=== PATIENT | male | born 1950 | race Caucasian/White ===

== ENCOUNTER 2016-10-31 21:25 | Emergency (ER) | payer BC, OTHER ==
[2016-10-31 21:32] VITALS: BP 133/81
[2016-10-31] MEDS ORDERED: ZIPRASIDONE 20 MG INJ IM ONE ×2 (22:13→22:30)
== END 2016-10-31 23:14 | disposition home or self-care (01) ==
LOC: ED 22:45
DX: F15.129 Other stimulant abuse with intoxication, unspecified (principal); I10 Essential (primary) hypertension
CPT/HCPCS: 96372; 99283; J3486

== ENCOUNTER → 2017-11-08 | Outpatient (CLI) | payer MEDICARE ==
[~2017-11-08] MED LIST: ASPI-515 PO/NG; ATEN-104 PO; ATOR40TA78 PO; BACL20TA PO; CLON0.1T PO; DOXY20TA5 PO; ENAL20TA PO; ESZO3TAB28 PO; HYDR-3240 PO
== END | disposition home or self-care (01) ==
LOC: RAD 15:25
PROVIDERS: ATTEND Nurse Practitioner Family
DX: I82.401 Acute embolism and thrombosis of unspecified deep veins of right lower extremity (principal)

== ENCOUNTER 2018-09-28 20:41 | Inpatient (IN) | payer MEDICARE ==
[~2018-09-28] VITALS: Ht 182.9 cm; Wt 83.3 kg
[~2018-09-28 20:41] MED LIST changes: -CLON0.1T PO; +CLON0.1T22 PO
[2018-09-28] MEDS ORDERED: SODIUM CHLORIDE 0.9% 1,000ML IVBOLUS ONE ×2 (21:00→22:00)
--- NOTE | 2018-09-28 21:11 | NUR ---
PT RETURNED FROM CT. REPORT FROM KIM OLIVA. PT AWAKE, INCOMPREHENSIBLE SPEECH. PT NOT FOLLOWING COMMANDS, BUT TURNS HEAD TOWARD RN. LAB IN TO DRAW. AIRWAY PATENT. SPO2 ON 3L BY NC. NO BASELINE O2 NEEDS.
[2018-09-28] MEDS ORDERED: CLOP75TA52 PO (21:17)
[2018-09-28 21:31] LABS: BASOPHILS # (AUTO) 0.02 x10^3/uL (0-0.1); BASOPHILS % (AUTO) 0 % (0-1); EOSINOPHILS # (AUTO) 0.19 x10^3/uL (0-0.4); EOSINOPHILS % (AUTO) 1 % (1-7); LYMPHOCYTES # (AUTO) 1.94 x10^3/uL (1-3.4); LYMPHOCYTES % (AUTO) 11 % (22-44); MD NO; MEAN CORPUSCULAR HEMOGLOBIN 20.5 pg (27.5-34.5); MEAN CORPUSCULAR HGB CONC 31.4 g/dL (33.2-36.2); MEAN CORPUSCULAR VOLUME 65.2 fL (81-97); MEAN PLATELET VOLUME 8.7 fL (7.4-10.4); MONOCYTES % (AUTO) 7 % (2-9); NEUTROPHILS # (AUTO) 14.31 x10^3/uL (1.8-6.8); NEUTROPHILS % (AUTO) 81 % (42-75); PLATELET COUNT 357 x10^3/uL (130-400); RED BLOOD COUNT 3.99 x10^6/uL (4.38-5.82); RED CELL DISTRIBUTION WIDTH 18.4 % (9.4-14.8)
[2018-09-28] MEDS ORDERED: FLUO20CA8 PO (21:36)
[2018-09-28] MEDS ORDERED: CHOL100011 PO (21:36)
[2018-09-28] MEDS ORDERED: PANT40TA5 PO (21:36)
[2018-09-28] MEDS ORDERED: PROM25SU34 RC (21:36)
[2018-09-28] MEDS ORDERED: DOXY20TA5 PO (21:36)
--- NOTE | 2018-09-28 21:36 | NUR ---
STRAIGHT CATH COMPLETED. UA COLLECTED AND WALKED TO LAB
[2018-09-28 21:43] LABS: ALANINE AMINOTRANSFERASE 263 U/L (12-78); ALBUMIN 3.3 g/dL (3.4-5.0); ANION GAP 11 mmol/L (5-15); CALCIUM 8.9 mg/dL (8.5-10.1); CHLORIDE 107 mmol/L (98-107); CREATININE 3.41 mg/dL (0.7-1.3)
[2018-09-28 21:52] LABS: MICROSCOPIC NOT IND
[2018-09-28 21:55] LABS: CULTURE INDICATED? NO
--- NOTE | 2018-09-28 21:55 | NUR ---
Set up for central lineplacement to room and nurse talking with family regarding need for placement as pt remains hypotensive. Dr Lynn is aware.
--- NOTE | 2018-09-28 21:56 | NUR ---
ERP AWARE OF BP. SECOND LITER ORDERED. IVF HUNG. ABX INITIATED. BC X2 DRAWN PRIOR TO ADMIN
[2018-09-28] MEDS ORDERED: VANCOMYCIN PER PHARMACY IV ONE (22:00)
[2018-09-28] MEDS ORDERED: VANCOMYCIN 1,600 MG in SODIUM CHLORIDE 0.9% 250 ML IV ONE (22:00)
[2018-09-28] MEDS ORDERED: PIPERACILLIN/TAZO/PMX 3.375GM 50 ML IVPB ONE (22:00)
--- NOTE | 2018-09-28 22:00 | NUR ---
CONSENT FOR CENTRAL LINE SIGNED BY AT BEDSIDE. PER ERP, START LEVOPHED THROUGH PIV. MEDICATION REQUESTED FROM PHARMACY
[2018-09-28 22:02] LABS: ALKALINE PHOSPHATASE 54 U/L (45-117); BILIRUBIN,TOTAL 0.6 mg/dL (0.2-1.0); TOTAL PROTEIN 7.5 g/dL (6.4-8.2)
--- NOTE | 2018-09-28 22:08 | NUR ---
THROUGHPUT RN: Called [facility] for admission, per Chema they are full and unable to accept patient.
--- NOTE | 2018-09-28 22:08 | NUR ---
Corina zamorano in ED - 09/28/18 at 2209 by AL THROUGHPUT RN: Called [facility] for admission, per Chema they are full and unable to accept patient.
--- NOTE | 2018-09-28 22:09 | NUR ---
ERP AWARE OF TROP. NO NEW ORDERS RECEIVED.
--- NOTE | 2018-09-28 22:12 | NUR ---
REQUEST FOR SUP ASA SENT TO PHARMACY
[2018-09-28] MEDS ORDERED: NOREPINEPHRINE 4 MG in SODIUM CHLORIDE 0.9% 246 ML IV PRN ×2 (22:30→23:30)
[2018-09-28] MEDS ORDERED: ASPIRIN 300 MG SUPP PR ONE (22:30)
--- NOTE | 2018-09-28 22:31 | NUR ---
LEVOPHED INITIATED THROUGH PIV PER ERP ORDER. ASA ADMIN PER ORDER.
[2018-09-28] MEDS ORDERED: LIDOCAINE-MPF 1%, 5ML ONE (22:40)
--- NOTE | 2018-09-28 23:15 | NUR ---
CENTRAL PLACED TO R IJ BY ERP WO DIFFICULTY. PT DESAT TO 70'S ON 4L BY NC WHEN IN SUPINE POSITION. PLACED ON 6L BY OXY MASK FOR PROCEDURE. SPO2 TO 90'S WHEN IN SEATED POSITION. PT DIAPHORETIC. IVF CONTINUES TO INFUSE. NSR W/ ST DEPRESSION ON MONITOR.
--- NOTE | 2018-09-28 23:32 | NUR ---
REPEAT EKG COMPLETED.
--- NOTE | 2018-09-28 23:43 | NUR ---
HOSPITALIST AT BEDSIDE.
--- NOTE | 2018-09-28 23:43 | NUR ---
XRAY CONFIRMATION OF CENTRAL LINE PLACEMENT RECEIVED. LEVO MOVED TO CENTRAL LINE.
--- NOTE | 2018-09-29 00:04 | NUR ---
PT BECOMING MORE TALKATIVE, THOUGH SPEECH IS DIFFICULT TO UNDERSTAND. IMPROVEMENT IN DIAPHORESIS NOTED.
--- NOTE | 2018-09-29 00:26 | NUR ---
REPORT TO KIM CORONADO IN CCU
[2018-09-29] MEDS ORDERED: HEPARIN 5,000 UNITS/ML, 1ML IV ONE (00:30)
[2018-09-29] MEDS ORDERED: ONDANSETRON 2MG/ML, 2ML IVPush PRN (00:30)
[2018-09-29] MEDS ORDERED: ZOSYN PER PHARMACY MC PRN (01:30)
[2018-09-29] MEDS ORDERED: VANCOMYCIN PER PHARMACY MC PRN (01:30)
[2018-09-29] MEDS: HEPARIN 25,000 UNITS/500ML PMX 500 ML IV PRN (01:54)
[2018-09-29] MEDS ORDERED: PHARMACOKINETIC MONITORING MC PRN (02:00)
[2018-09-29] MEDS ORDERED: PIPERACILLIN/TAZO/PMX 2.25GM 50 ML IVPB SCH (04:00)
[2018-09-29 04:22] VITALS: BP 89/42
[2018-09-29] MEDS: NOREPINEPHRINE 8 MG in SODIUM CHLORIDE 0.9% 242 ML IV PRN ×2 (04:58→14:01)
[2018-09-29] MEDS: CEFTRIAXONE PMX 1GM/50ML 50 ML IV SCH ×2 (09:36→10:49)
[2018-09-29] MEDS: HEPARIN 5,000 UNITS/ML, 1ML IV PRN ×2 (10:42→22:30)
[2018-09-29] MEDS: DOXYCYCLINE 100 MG in DEXTROSE 5% 250 ML IV SCH ×2 (10:51→22:29)
[2018-09-30] MEDS: HEPARIN 25,000 UNITS/500ML PMX 500 ML IV PRN ×2 (03:24→23:23)
[2018-09-30 04:00] VITALS: BP 107/59
[2018-09-30 04:47] LABS: BASOPHILS # (AUTO) 0.16 x10^3/uL (0-0.1); BASOPHILS % (AUTO) 1 % (0-1); EOSINOPHILS % (AUTO) 0 % (1-7); LYMPHOCYTES # (AUTO) 1.42 x10^3/uL (1-3.4); LYMPHOCYTES % (AUTO) 12 % (22-44); MD NO; MEAN CORPUSCULAR HEMOGLOBIN 20.4 pg (27.5-34.5); MEAN CORPUSCULAR HGB CONC 30.8 g/dL (33.2-36.2); MEAN CORPUSCULAR VOLUME 66.1 fL (81-97); MONOCYTES % (AUTO) 10 % (2-9); NEUTROPHILS # (AUTO) 9.12 x10^3/uL (1.8-6.8); NEUTROPHILS % (AUTO) 77 % (42-75); PLATELET COUNT 295 x10^3/uL (130-400); RED BLOOD COUNT 3.49 x10^6/uL (4.38-5.82); RED CELL DISTRIBUTION WIDTH 18.5 % (9.4-14.8)
[2018-09-30 04:58] LABS: ALBUMIN 2.5 g/dL (3.4-5.0); ANION GAP 6 mmol/L (5-15); CALCIUM 8.3 mg/dL (8.5-10.1); CHLORIDE 118 mmol/L (98-107)
[2018-09-30 05:02] LABS: ALANINE AMINOTRANSFERASE 327 U/L (12-78); ALKALINE PHOSPHATASE 57 U/L (45-117); BILIRUBIN,TOTAL 0.5 mg/dL (0.2-1.0); CREATININE 1.33 mg/dL (0.7-1.3); TOTAL PROTEIN 6.7 g/dL (6.4-8.2)
[2018-09-30 08:00] VITALS: BP 106/62
[2018-09-30] MEDS: FERROUS SULFATE 325 MG TABLET PO SCH ×2 (09:00→16:56)
[2018-09-30 09:02] VITALS: BP 105/58
[2018-09-30 09:58] VITALS: BP 107/73
[2018-09-30] MEDS: ARTIFICIAL TEARS 15 DROP/ML BOTTLE EACHEYE PRN ×3 (11:25→22:02)
[2018-09-30] MEDS ORDERED: GADOBUTROL 7.5 MMOL/7.5 ML PFS ONE (13:24)
[2018-09-30] MEDS: CEFTRIAXONE PMX 1GM/50ML 50 ML IV SCH (13:36)
[2018-09-30] MEDS: DOXYCYCLINE 100 MG in DEXTROSE 5% 250 ML IV SCH ×2 (13:36→23:44)
[2018-09-30 13:58] VITALS: BP 114/74
[2018-09-30 19:27] VITALS: BP 110/71
[2018-10-01] MEDS ORDERED: ETOMIDATE 40 MG/20 ML ONE
[2018-10-01] MEDS ORDERED: ROCURONIUM 10 MG/ML,10ML ONE
[2018-10-01] MEDS ORDERED: VASOPRESSIN 20 UNIT/ML, 1ML ONE
[2018-10-01] MEDS ORDERED: PROPOFOL 10 MG/ML, 100ML IV ONE
[2018-10-01 00:32] VITALS: BP 110/76
[2018-10-01 05:33] LABS: MEAN CORPUSCULAR HEMOGLOBIN 20.5 pg (27.5-34.5); MEAN CORPUSCULAR HGB CONC 30.9 g/dL (33.2-36.2); MEAN CORPUSCULAR VOLUME 66.5 fL (81-97); MEAN PLATELET VOLUME 8.5 fL (7.4-10.4); PLATELET COUNT 336 x10^3/uL (130-400); RED BLOOD COUNT 3.97 x10^6/uL (4.38-5.82); RED CELL DISTRIBUTION WIDTH 18.4 % (9.4-14.8)
[2018-10-01 05:38] LABS: ANION GAP 9 mmol/L (5-15); CALCIUM 8.6 mg/dL (8.5-10.1); CHLORIDE 118 mmol/L (98-107); CREATININE 1.37 mg/dL (0.7-1.3)
[2018-10-01 05:55] LABS: BASOPHILS # (AUTO) 0.35 x10^3/uL (0-0.1); BASOPHILS % (AUTO) 3 % (0-1); EOSINOPHILS % (AUTO) 0 % (1-7); LYMPHOCYTES # (AUTO) 1.39 x10^3/uL (1-3.4); LYMPHOCYTES % (AUTO) 10 % (22-44); MD SCAN; MONOCYTES # (AUTO) 1.35 x10^3/uL (0.2-0.8); MONOCYTES % (AUTO) 10 % (2-9); NEUTROPHILS # (AUTO) 10.56 x10^3/uL (1.8-6.8); NEUTROPHILS % (AUTO) 77 % (42-75)
[2018-10-01 07:03] VITALS: BP 132/85
[2018-10-01] MEDS: FERROUS SULFATE 325 MG TABLET PO SCH ×2 (07:26→17:00)
[2018-10-01] MEDS ORDERED: FUROSEMIDE 40 MG/4 ML ONE (08:24)
[2018-10-01] MEDS: ASPIRIN 81 MG TABLET EC PO SCH (08:30)
[2018-10-01] MEDS ORDERED: FUROSEMIDE 40 MG/4 ML IV ONE ×2 (08:30→15:00)
[2018-10-01] MEDS ORDERED: POTASSIUM CHLORIDE 20 MEQ TAB.ER.PRT PO SCH (08:30)
[2018-10-01] MEDS: ARTIFICIAL TEARS 15 DROP/ML BOTTLE EACHEYE PRN (08:44)
[2018-10-01] MEDS ORDERED: POTASSIUM CHLORIDE 20 MEQ in SODIUM CHLORIDE 0.9% 250 ML IV ONE (09:30)
[2018-10-01] MEDS ORDERED: SODIUM CHLORIDE 0.9% 1,000 ML IV SCH ×2 (11:00→12:30)
[2018-10-01 11:27] VITALS: BP 111/65
[2018-10-01] MEDS ORDERED: NOREPINEPHRINE 1 MG/ML, 4ML ONE (11:49)
[2018-10-01] MEDS ORDERED: SODIUM CHLORIDE 0.9% 1,000ML IVBOLUS ONE (12:30)
[2018-10-01] MEDS ORDERED: SENNA 176 MG/5 ML ORAL SOL NG PRN (12:30)
[2018-10-01] MEDS ORDERED: GLUCAGON 1 MG IM PRN (12:30)
[2018-10-01] MEDS ORDERED: VANCOMYCIN PER PHARMACY MC PRN (12:30)
[2018-10-01] MEDS ORDERED: SENNA/DOCUSATE TABLET NG PRN (12:30)
[2018-10-01] MEDS ORDERED: LACTULOSE 20 GM/30 ML UDC NG PRN (12:30)
[2018-10-01] MEDS: ALBUTEROL/IPRATROPIUM 2.5MG/0.5MG, 3 ML INLINE SCH ×4 (12:30→22:27)
[2018-10-01] MEDS ORDERED: DEXTROSE 50%, 50ML SYRINGE IVPush PRN (12:30)
[2018-10-01] MEDS ORDERED: LIDOCAINE-MPF 1%, 2ML ENDO PRN (12:30)
[2018-10-01] MEDS ORDERED: BISACODYL 10 MG SUPP PR PRN (12:30)
[2018-10-01] MEDS ORDERED: PHARMACY MAY ADJ FOR RENAL FX MC SCH (12:30)
[2018-10-01] MEDS ORDERED: DEXTROSE 4 GM TAB.CHEW PO PRN (12:30)
[2018-10-01] MEDS ORDERED: PHARMACOKINETIC MONITORING MC PRN (13:00)
[2018-10-01] MEDS: NOREPINEPHRINE 4 MG in SODIUM CHLORIDE 0.9% 246 ML IV PRN ×3 (13:17→22:32)
[2018-10-01 13:28] LABS: INTERNATIONAL NORMALIZED RATIO 1.22 (0.93-1.1); PROTHROMBIN TIME 12.7 Seconds (9.6-11.5)
[2018-10-01 14:15] LABS: MEAN CORPUSCULAR HEMOGLOBIN 20.1 pg (27.5-34.5); MEAN CORPUSCULAR HGB CONC 30.4 g/dL (33.2-36.2); MEAN CORPUSCULAR VOLUME 66.1 fL (81-97); MEAN PLATELET VOLUME 9.4 fL (7.4-10.4); PLATELET COUNT 390 x10^3/uL (130-400); RED BLOOD COUNT 3.62 x10^6/uL (4.38-5.82); RED CELL DISTRIBUTION WIDTH 18.3 % (9.4-14.8)
[2018-10-01 14:17] LABS: MD YES
[2018-10-01 14:24] LABS: BAND#(MANUAL) 0.13 x10^3/uL; BANDS%(MANUAL) 1 % (0-7); LYMPH#(MANUAL) 1.89 x10^3/uL (1-3.4); LYMPHS% (MANUAL) 15 % (22-44); MONOS#(MANUAL) 0.76 x10^3/uL (0.3-2.7); MONOS% (MANUAL) 6 % (2-9); NRBC % (MANUAL) 2 % (0-1); SEG#(MANUAL) 9.83 x10^3/uL (1.8-6.8); SEGS% (MANUAL) 78 % (42-75)
[2018-10-01 14:26] LABS: <PLATELET ESTIMATE> ADEQUATE; <PLT MORPHOLOGY> NORMAL PLT MORPH; ANISOCYTOSIS 1+; HYPOCHROMIA 1+; POLYCHROMASIA 1+
[2018-10-01] MEDS ORDERED: VASOPRESSIN 100 UNIT in SODIUM CHLORIDE 0.9% 495 ML IV PRN (14:30)
[2018-10-01 15:15] LABS: CALCIUM 8.1 mg/dL (8.5-10.1); CHLORIDE 121 mmol/L (98-107)
[2018-10-01 15:21] LABS: ALANINE AMINOTRANSFERASE 239 U/L (12-78); ALBUMIN 2.3 g/dL (3.4-5.0); ALKALINE PHOSPHATASE 65 U/L (45-117); ANION GAP 10 mmol/L (5-15); BILIRUBIN,TOTAL 0.6 mg/dL (0.2-1.0); CREATININE 1.76 mg/dL (0.7-1.3); TOTAL PROTEIN 6.4 g/dL (6.4-8.2)
[2018-10-01] MEDS: PIPERACILLIN/TAZO/PMX 3.375GM 50 ML IV SCH ×2 (15:25→19:54)
[2018-10-01] MEDS: VANCOMYCIN 1,600 MG in SODIUM CHLORIDE 0.9% 250 ML IV SCH (15:25)
[2018-10-01] MEDS: INSULIN LISPRO 100 UNITS/ML, PEN SQ-INSULIN SCH ×2 (16:00→21:37)
[2018-10-01] MEDS ORDERED: FUROSEMIDE 40 MG TABLET PO SCH (17:00)
[2018-10-01] MEDS: PROPOFOL 100 ML IV PRN (19:28)
[2018-10-01] MEDS: SODIUM CHLORIDE FLUSH 10ML SYR IVF SCH (21:36)
[2018-10-01] MEDS: HEPARIN 25,000 UNITS/500ML PMX 500 ML IV PRN (23:54)
[2018-10-02] MEDS: PIPERACILLIN/TAZO/PMX 3.375GM 50 ML IV SCH ×4 (02:02→19:58)
[2018-10-02] MEDS: NOREPINEPHRINE 4 MG in SODIUM CHLORIDE 0.9% 246 ML IV PRN ×4 (02:14→20:54)
[2018-10-02] MEDS: ALBUTEROL/IPRATROPIUM 2.5MG/0.5MG, 3 ML INLINE SCH ×6 (02:53→22:43)
[2018-10-02] MEDS: PROPOFOL 100 ML IV PRN ×2 (03:45→13:20)
[2018-10-02 03:48] LABS: MEAN CORPUSCULAR HEMOGLOBIN 20.1 pg (27.5-34.5); MEAN CORPUSCULAR HGB CONC 30.5 g/dL (33.2-36.2); MEAN CORPUSCULAR VOLUME 66.1 fL (81-97); MEAN PLATELET VOLUME 8.6 fL (7.4-10.4); PLATELET COUNT 300 x10^3/uL (130-400); RED BLOOD COUNT 3.34 x10^6/uL (4.38-5.82); RED CELL DISTRIBUTION WIDTH 18.3 % (9.4-14.8)
[2018-10-02 03:59] LABS: ALANINE AMINOTRANSFERASE 211 U/L (12-78); ALBUMIN 2.2 g/dL (3.4-5.0); ANION GAP 7 mmol/L (5-15); CALCIUM 8.1 mg/dL (8.5-10.1); CHLORIDE 121 mmol/L (98-107); CREATININE 1.69 mg/dL (0.7-1.3)
[2018-10-02 04:00] LABS: ANISOCYTOSIS 1+; BASOPHILS # (AUTO) 0.12 x10^3/uL (0-0.1); BASOPHILS % (AUTO) 1 % (0-1); EOSINOPHILS # (AUTO) 0.12 x10^3/uL (0-0.4); EOSINOPHILS % (AUTO) 1 % (1-7); LYMPHOCYTES # (AUTO) 1.94 x10^3/uL (1-3.4); LYMPHOCYTES % (AUTO) 15 % (22-44); MD MORPH REVIEW ONLY; MONOCYTES # (AUTO) 1.36 x10^3/uL (0.2-0.8); MONOCYTES % (AUTO) 11 % (2-9); NEUTROPHILS # (AUTO) 9.13 x10^3/uL (1.8-6.8); NEUTROPHILS % (AUTO) 72 % (42-75)
[2018-10-02 04:01] LABS: ALKALINE PHOSPHATASE 57 U/L (45-117); BILIRUBIN,TOTAL 0.6 mg/dL (0.2-1.0); ECHINOCYTES 1+; POLYCHROMASIA 1+; TOTAL PROTEIN 6.1 g/dL (6.4-8.2)
[2018-10-02 04:02] LABS: <PLATELET ESTIMATE> ADEQUATE; LARGE PLATELETS 1+; OVALOCYTES 1+
[2018-10-02 05:00] VITALS: BP 96/55
[2018-10-02 05:30] VITALS: BP 95/60
[2018-10-02 05:45] VITALS: BP 96/54
[2018-10-02] MEDS: ASPIRIN 81 MG TABLET EC PO SCH (05:48)
[2018-10-02 06:00] VITALS: BP 102/52
[2018-10-02 07:00] VITALS: BP 104/62
[2018-10-02] MEDS: FERROUS SULFATE 325 MG TABLET PO SCH (08:00)
[2018-10-02] MEDS ORDERED: SODIUM CHLORIDE 0.9% 1,000 ML IV SCH (08:30)
[2018-10-02] MEDS: SODIUM CHLORIDE FLUSH 10ML SYR IVF SCH ×2 (08:53→19:59)
[2018-10-02] MEDS: FAMOTIDINE 20 MG/2 ML IVPush SCH (08:55)
[2018-10-02] MEDS: INSULIN LISPRO 100 UNITS/ML, PEN SQ-INSULIN SCH ×4 (09:32→23:06)
[2018-10-02] MEDS: FERROUS SULFATE 220 MG/5 ML ORAL SOL NG SCH ×2 (09:33→19:58)
[2018-10-02] MEDS: FENTANYL PF 100 MCG/2ML IVPush PRN ×2 (12:33→22:56)
[2018-10-02] MEDS: POTASSIUM CHLORIDE 10 MEQ in DEXTROSE 5% 1,000 ML IV SCH (13:10)
[2018-10-02] MEDS: VANCOMYCIN 1,600 MG in SODIUM CHLORIDE 0.9% 250 ML IV SCH (14:44)
[2018-10-02] MEDS: BACLOFEN 10 MG TABLET PO SCH ×2 (17:40→19:58)
[2018-10-02] MEDS: HEPARIN 5,000 UNITS/ML, 1ML SQ SCH (17:40)
[2018-10-02] MEDS ORDERED: AMIODARONE 150 MG in DEXTROSE 5% 100 ML IV ONE (19:00)
[2018-10-02] MEDS: AMIODARONE 900 MG in DEXTROSE 5% 482 ML IV PRN (19:27)
[2018-10-02] MEDS: FILTER 0.22 MICRON FOR AMIODARONE IV PRN (19:27)
[2018-10-02 23:46] LABS: CULTURE INDICATED? YES; MICROSCOPIC INDICATED
[2018-10-03] MEDS: FENTANYL PF 100 MCG/2ML IVPush PRN (01:54)
[2018-10-03] MEDS: HEPARIN 5,000 UNITS/ML, 1ML SQ SCH ×3 (02:57→17:18)
[2018-10-03] MEDS: NOREPINEPHRINE 4 MG in SODIUM CHLORIDE 0.9% 246 ML IV PRN (02:58)
[2018-10-03] MEDS: PIPERACILLIN/TAZO/PMX 3.375GM 50 ML IV SCH ×4 (02:58→20:28)
[2018-10-03] MEDS: INSULIN LISPRO 100 UNITS/ML, PEN SQ-INSULIN SCH ×4 (04:01→23:16)
[2018-10-03 04:13] LABS: MEAN CORPUSCULAR HEMOGLOBIN 21.5 pg (27.5-34.5); MEAN CORPUSCULAR HGB CONC 31.5 g/dL (33.2-36.2); MEAN CORPUSCULAR VOLUME 68.2 fL (81-97); MEAN PLATELET VOLUME 9.2 fL (7.4-10.4); PLATELET COUNT 244 x10^3/uL (130-400); RED BLOOD COUNT 3.42 x10^6/uL (4.38-5.82); RED CELL DISTRIBUTION WIDTH 20.6 % (9.4-14.8)
[2018-10-03 04:30] LABS: MD YES
[2018-10-03] MEDS: ALBUTEROL/IPRATROPIUM 2.5MG/0.5MG, 3 ML INLINE SCH ×5 (04:30→22:14)
[2018-10-03 04:34] LABS: ANISOCYTOSIS 1+; BAND#(MANUAL) 0.13 x10^3/uL; BANDS%(MANUAL) 1 % (0-7); EOS#(MANUAL) 0.13 x10^3/uL (0.0-0.4); EOS% (MANUAL) 1 % (1-7); LYMPH#(MANUAL) 3.28 x10^3/uL (1-3.4); LYMPHS% (MANUAL) 26 % (22-44); MONOS#(MANUAL) 1.39 x10^3/uL (0.3-2.7); MONOS% (MANUAL) 11 % (2-9); POLYCHROMASIA 1+; SEG#(MANUAL) 7.69 x10^3/uL (1.8-6.8); SEGS% (MANUAL) 61 % (42-75)
[2018-10-03 04:35] LABS: <PLATELET ESTIMATE> ADEQUATE
[2018-10-03 04:36] LABS: LARGE PLATELETS 1+
[2018-10-03] MEDS: ASPIRIN 81 MG TABLET CHEW PO SCH (05:12)
[2018-10-03] MEDS: PROPOFOL 100 ML IV PRN ×2 (05:12→18:12)
[2018-10-03 05:25] LABS: ANION GAP 11 mmol/L (5-15); CALCIUM 8.3 mg/dL (8.5-10.1); CHLORIDE 118 mmol/L (98-107)
[2018-10-03 05:27] LABS: CREATININE 1.58 mg/dL (0.7-1.3)
[2018-10-03] MEDS: FERROUS SULFATE 220 MG/5 ML ORAL SOL NG SCH ×2 (09:39→20:34)
[2018-10-03] MEDS: SODIUM CHLORIDE FLUSH 10ML SYR IVF SCH ×2 (09:39→20:34)
[2018-10-03] MEDS: FAMOTIDINE 20 MG/2 ML IVPush SCH (09:39)
[2018-10-03] MEDS: BACLOFEN 10 MG TABLET PO SCH ×3 (09:39→20:34)
[2018-10-03] MEDS: POTASSIUM CHLORIDE 10 MEQ in DEXTROSE 5% 1,000 ML IV SCH (12:27)
[2018-10-03] MEDS: VANCOMYCIN 1,600 MG in SODIUM CHLORIDE 0.9% 250 ML IV SCH (13:49)
[2018-10-03] MEDS: AMIODARONE 900 MG in DEXTROSE 5% 482 ML IV PRN (18:12)
[2018-10-04] MEDS: PROPOFOL 100 ML IV PRN ×4 (01:02→17:26)
[2018-10-04] MEDS: HEPARIN 5,000 UNITS/ML, 1ML SQ SCH ×3 (01:03→17:10)
[2018-10-04] MEDS: ARTIFICIAL TEARS 15 DROP/ML BOTTLE EACHEYE PRN (01:45)
[2018-10-04] MEDS: PIPERACILLIN/TAZO/PMX 3.375GM 50 ML IV SCH ×3 (01:46→14:00)
[2018-10-04] MEDS: ALBUTEROL/IPRATROPIUM 2.5MG/0.5MG, 3 ML INLINE SCH ×6 (02:04→22:18)
[2018-10-04] MEDS: NOREPINEPHRINE 4 MG in SODIUM CHLORIDE 0.9% 246 ML IV PRN ×3 (02:58→22:52)
[2018-10-04 04:33] LABS: MEAN CORPUSCULAR HEMOGLOBIN 21.3 pg (27.5-34.5); MEAN CORPUSCULAR HGB CONC 31.2 g/dL (33.2-36.2); MEAN CORPUSCULAR VOLUME 68.1 fL (81-97); RED BLOOD COUNT 3.34 x10^6/uL (4.38-5.82); RED CELL DISTRIBUTION WIDTH 20.9 % (9.4-14.8)
[2018-10-04] MEDS: INSULIN LISPRO 100 UNITS/ML, PEN SQ-INSULIN SCH ×4 (05:18→23:42)
[2018-10-04] MEDS: ASPIRIN 81 MG TABLET CHEW PO SCH (05:39)
[2018-10-04 05:44] LABS: MD YES
[2018-10-04 05:46] LABS: MEAN PLATELET VOLUME 8.6 fL (7.4-10.4); PLATELET COUNT 198 x10^3/uL (130-400)
[2018-10-04 05:47] LABS: EOS#(MANUAL) 0.17 x10^3/uL (0.0-0.4); EOS% (MANUAL) 1 % (1-7); LYMPH#(MANUAL) 2.32 x10^3/uL (1-3.4); LYMPHS% (MANUAL) 14 % (22-44); MONOS#(MANUAL) 0.83 x10^3/uL (0.3-2.7); MONOS% (MANUAL) 5 % (2-9); SEG#(MANUAL) 13.28 x10^3/uL (1.8-6.8); SEGS% (MANUAL) 80 % (42-75)
[2018-10-04 05:48] LABS: ANISOCYTOSIS 1+; HYPOCHROMIA 1+; NRBC % (MANUAL) 5 % (0-1); OVALOCYTES 1+; POLYCHROMASIA 1+
[2018-10-04 05:49] LABS: <PLATELET ESTIMATE> ADEQUATE
[2018-10-04 05:50] LABS: LARGE PLATELETS 1+
[2018-10-04 06:41] LABS: ANION GAP 10 mmol/L (5-15); CALCIUM 6.9 mg/dL (8.5-10.1); CHLORIDE 124 mmol/L (98-107); CREATININE 1.19 mg/dL (0.7-1.3)
[2018-10-04] MEDS ORDERED: MAGNESIUM SULFATE PMX 2GM/50ML 50 ML IVPB ONE (08:30)
[2018-10-04] MEDS: POTASSIUM CHLORIDE 10% 40 MEQ/30 ML UDC PO SCH ×2 (09:40→21:13)
[2018-10-04] MEDS: FUROSEMIDE 20 MG/2 ML IV SCH ×2 (09:41→21:12)
[2018-10-04] MEDS: FERROUS SULFATE 220 MG/5 ML ORAL SOL NG SCH ×2 (09:41→21:12)
[2018-10-04] MEDS: FAMOTIDINE 20 MG/2 ML IVPush SCH ×2 (09:41→21:12)
[2018-10-04] MEDS: SODIUM CHLORIDE FLUSH 10ML SYR IVF SCH ×2 (09:41→21:12)
[2018-10-04] MEDS: BACLOFEN 10 MG TABLET PO SCH ×3 (09:41→21:13)
[2018-10-04] MEDS: VANCOMYCIN 1,600 MG in SODIUM CHLORIDE 0.9% 250 ML IV SCH (15:58)
[2018-10-04] MEDS: PIPERACILLIN/TAZO/PMX 4.5GM 100 ML IV SCH (21:11)
[2018-10-05] MEDS: PIPERACILLIN/TAZO/PMX 4.5GM 100 ML IV SCH ×4 (01:24→20:20)
[2018-10-05] MEDS: HEPARIN 5,000 UNITS/ML, 1ML SQ SCH ×3 (01:24→17:26)
[2018-10-05] MEDS: PROPOFOL 100 ML IV PRN ×5 (01:28→22:43)
[2018-10-05] MEDS: AMIODARONE 900 MG in DEXTROSE 5% 482 ML IV PRN (01:57)
[2018-10-05] MEDS: FILTER 0.22 MICRON FOR AMIODARONE IV PRN (01:57)
[2018-10-05] MEDS: ALBUTEROL/IPRATROPIUM 2.5MG/0.5MG, 3 ML INLINE SCH ×6 (02:20→23:11)
[2018-10-05] MEDS: NOREPINEPHRINE 4 MG in SODIUM CHLORIDE 0.9% 246 ML IV PRN ×2 (05:35→13:00)
[2018-10-05 06:00] LABS: MEAN CORPUSCULAR HEMOGLOBIN 21.2 pg (27.5-34.5); MEAN CORPUSCULAR HGB CONC 31.5 g/dL (33.2-36.2); MEAN CORPUSCULAR VOLUME 67.3 fL (81-97); MEAN PLATELET VOLUME 8.8 fL (7.4-10.4); PLATELET COUNT 197 x10^3/uL (130-400); RED BLOOD COUNT 3.48 x10^6/uL (4.38-5.82)
[2018-10-05 06:02] LABS: ANION GAP 10 mmol/L (5-15); CALCIUM 8.1 mg/dL (8.5-10.1); CHLORIDE 117 mmol/L (98-107)
[2018-10-05] MEDS: INSULIN LISPRO 100 UNITS/ML, PEN SQ-INSULIN SCH ×4 (06:13→22:46)
[2018-10-05] MEDS: ASPIRIN 81 MG TABLET CHEW PO SCH (06:13)
[2018-10-05 06:24] LABS: MD YES
[2018-10-05 06:29] LABS: <PLATELET ESTIMATE> ADEQUATE; ANISOCYTOSIS 1+; EOS% (MANUAL) 1 % (1-7); HYPOCHROMIA 1+; LARGE PLATELETS 1+; LYMPH#(MANUAL) 2.22 x10^3/uL (1-3.4); LYMPHS% (MANUAL) 11 % (22-44); MONOS#(MANUAL) 1.01 x10^3/uL (0.3-2.7); MONOS% (MANUAL) 5 % (2-9); MYELOCYTES% (MANUAL) 1 % (0-0); NRBC % (MANUAL) 6 % (0-1); OVALOCYTES 1+; POLYCHROMASIA 1+; SEG#(MANUAL) 16.56 x10^3/uL (1.8-6.8); SEGS% (MANUAL) 82 % (42-75)
[2018-10-05 06:30] LABS: MICROCYTOSIS 2+
[2018-10-05] MEDS: FAMOTIDINE 20 MG/2 ML IVPush SCH ×2 (10:08→21:40)
[2018-10-05] MEDS: BACLOFEN 10 MG TABLET PO SCH ×3 (10:08→21:40)
[2018-10-05] MEDS: FUROSEMIDE 20 MG/2 ML IV SCH ×3 (10:08→20:20)
[2018-10-05] MEDS: FERROUS SULFATE 220 MG/5 ML ORAL SOL NG SCH ×2 (10:11→21:40)
[2018-10-05] MEDS: SODIUM CHLORIDE FLUSH 10ML SYR IVF SCH ×2 (10:11→21:40)
[2018-10-05] MEDS: POTASSIUM CHLORIDE 10% 40 MEQ/30 ML UDC PO SCH ×2 (10:11→21:40)
[2018-10-05] MEDS: FENTANYL PF 100 MCG/2ML IVPush PRN ×2 (11:36→21:42)
[2018-10-05] MEDS ORDERED: FUROSEMIDE 20 MG TABLET PO SCH (13:00)
[2018-10-05] MEDS ORDERED: VASOPRESSIN 100 UNIT in SODIUM CHLORIDE 0.9% 495 ML IV PRN (13:00)
[2018-10-05 14:39] LABS: CULTURE INDICATED? YES; MICROSCOPIC INDICATED
[2018-10-06] MEDS: FUROSEMIDE 20 MG/2 ML IV SCH ×3 (01:45→13:00)
[2018-10-06] MEDS: FENTANYL PF 100 MCG/2ML IVPush PRN ×3 (01:45→13:53)
[2018-10-06] MEDS: HEPARIN 5,000 UNITS/ML, 1ML SQ SCH ×2 (01:46→09:39)
[2018-10-06] MEDS: PIPERACILLIN/TAZO/PMX 4.5GM 100 ML IV SCH (01:52)
[2018-10-06] MEDS: NOREPINEPHRINE 4 MG in SODIUM CHLORIDE 0.9% 246 ML IV PRN ×2 (01:58→13:45)
[2018-10-06] MEDS: ALBUTEROL/IPRATROPIUM 2.5MG/0.5MG, 3 ML INLINE SCH ×3 (02:25→06:50)
[2018-10-06] MEDS: PROPOFOL 100 ML IV PRN ×2 (02:41→09:40)
[2018-10-06 04:00] LABS: MEAN CORPUSCULAR HEMOGLOBIN 21.3 pg (27.5-34.5); MEAN CORPUSCULAR HGB CONC 31.1 g/dL (33.2-36.2); MEAN CORPUSCULAR VOLUME 68.4 fL (81-97); PLATELET COUNT 190 x10^3/uL (130-400); RED BLOOD COUNT 3.25 x10^6/uL (4.38-5.82); RED CELL DISTRIBUTION WIDTH 22.2 % (9.4-14.8)
[2018-10-06] MEDS ORDERED: VANCOMYCIN 1,600 MG in SODIUM CHLORIDE 0.9% 250 ML IV SCH (04:00)
[2018-10-06 04:02] LABS: ANION GAP 8 mmol/L (5-15); CALCIUM 7.8 mg/dL (8.5-10.1); CHLORIDE 118 mmol/L (98-107); CREATININE 1.79 mg/dL (0.7-1.3)
[2018-10-06] MEDS: INSULIN LISPRO 100 UNITS/ML, PEN SQ-INSULIN SCH ×2 (05:00→11:00)
[2018-10-06 05:39] LABS: MD YES
[2018-10-06 05:40] LABS: EOS% (MANUAL) 1 % (1-7); LYMPH#(MANUAL) 1.57 x10^3/uL (1-3.4); LYMPHS% (MANUAL) 8 % (22-44); METAMYELOCYTES% (MANUAL) 1 % (0-1); MONOS#(MANUAL) 0.78 x10^3/uL (0.3-2.7); MONOS% (MANUAL) 4 % (2-9); MYELOCYTES% (MANUAL) 1 % (0-0); SEG#(MANUAL) 16.66 x10^3/uL (1.8-6.8); SEGS% (MANUAL) 85 % (42-75)
[2018-10-06 05:41] LABS: ANISOCYTOSIS 2+; HYPOCHROMIA 1+; MICROCYTOSIS 2+; NRBC % (MANUAL) 2 % (0-1); OVALOCYTES 1+; POLYCHROMASIA 1+
[2018-10-06 05:42] LABS: <PLATELET ESTIMATE> ADEQUATE; LARGE PLATELETS 1+
[2018-10-06] MEDS: ASPIRIN 81 MG TABLET CHEW PO SCH (06:00)
[2018-10-06] MEDS: PIPERACILLIN/TAZO/PMX 3.375GM 50 ML IV SCH ×2 (07:48→13:00)
[2018-10-06] MEDS: FAMOTIDINE 20 MG/2 ML IVPush SCH (09:37)
[2018-10-06] MEDS: SODIUM CHLORIDE FLUSH 10ML SYR IVF SCH (09:37)
[2018-10-06] MEDS: BACLOFEN 10 MG TABLET PO SCH (09:37)
[2018-10-06] MEDS: FERROUS SULFATE 220 MG/5 ML ORAL SOL NG SCH (09:39)
[2018-10-06] MEDS ORDERED: ACETAMINOPHEN 325 MG TABLET ONE (13:27)
[2018-10-06] MEDS ORDERED: ACETAMINOPHEN 325 MG TABLET NG PRN (14:00)
[2018-10-06] MEDS ORDERED: LORazepam INTENSOL 2 MG/ML SL PRN (16:30)
[2018-10-06] MEDS ORDERED: MORPHINE SULFATE 4 MG/ML, 1ML IVPush PRN ×2 (16:30→17:00)
[2018-10-06] MEDS ORDERED: morphine SULFATE ORAL.CONC 20 MG/ML SL PRN (16:30)
[2018-10-06] MEDS ORDERED: LORazepam 2 MG/ML, 1ML ONE ×2 (16:33→16:35)
[2018-10-07] MEDS ORDERED: FAMOTIDINE 20 MG/2 ML IVPush SCH (09:00)
== END 2018-10-06 21:32 | disposition expired | DRG 870 ==
LOC: ED 22:08 → EDIP 23:36 → CCU 09-29 00:52 → 5SO 09-30 09:32 → CCU 10-01 11:44
PROVIDERS: ADMIT Internal Medicine; ATTEND Internal Medicine
PROC: 0T9B70Z Drainage of Bladder with Drainage Device, Via Natural or Artificial Opening (ICD-10-PCS; 2018-09-28)
PROC: 02HV33Z Insertion of Infusion Device into Superior Vena Cava, Percutaneous Approach (ICD-10-PCS; 2018-09-28)
PROC: 5A1955Z Respiratory Ventilation, Greater than 96 Consecutive Hours (ICD-10-PCS; principal; 2018-10-01)
PROC: 0BH17EZ Insertion of Endotracheal Airway into Trachea, Via Natural or Artificial Opening (ICD-10-PCS; 2018-10-01)
PROC: 30233N1 Transfusion of Nonautologous Red Blood Cells into Peripheral Vein, Percutaneous Approach (ICD-10-PCS; 2018-10-02)
DX: A41.9 Sepsis, unspecified organism (principal); I21.4 Non-ST elevation (NSTEMI) myocardial infarction; N17.0 Acute kidney failure with tubular necrosis; J18.9 Pneumonia, unspecified organism; G93.41 Metabolic encephalopathy; I26.99 Other pulmonary embolism without acute cor pulmonale; I63.9 Cerebral infarction, unspecified; J96.01 Acute respiratory failure with hypoxia; R65.21 Severe sepsis with septic shock; I50.21 Acute systolic (congestive) heart failure; R47.01 Aphasia; B17.9 Acute viral hepatitis, unspecified; E87.0 Hyperosmolality and hypernatremia; Z99.11 Dependence on respirator [ventilator] status; R57.0 Cardiogenic shock; D50.9 Iron deficiency anemia, unspecified; E88.09 Other disorders of plasma-protein metabolism, not elsewhere classified; G47.00 Insomnia, unspecified; G89.4 Chronic pain syndrome; I08.1 Rheumatic disorders of both mitral and tricuspid valves; I11.0 Hypertensive heart disease with heart failure; I25.10 Atherosclerotic heart disease of native coronary artery without angina pectoris; I25.5 Ischemic cardiomyopathy; I48.91 Unspecified atrial fibrillation; I67.2 Cerebral atherosclerosis; I65.02 Occlusion and stenosis of left vertebral artery; I73.9 Peripheral vascular disease, unspecified; I95.0 Idiopathic hypotension; K72.90 Hepatic failure, unspecified without coma; Z51.5 Encounter for palliative care; Z66 Do not resuscitate; Z79.01 Long term (current) use of anticoagulants; I25.2 Old myocardial infarction; Z79.82 Long term (current) use of aspirin; Z82.3 Family history of stroke; Z85.828 Personal history of other malignant neoplasm of skin; Z87.891 Personal history of nicotine dependence
CPT/HCPCS: 36415; 36600; 70450; 70553; 71045; 80048; 80053; 80202; 81001; 81003; 82378; 82533; 82728; 82803; 82962; 83540; 83550; 83605; 83735; 83880; 84100; 84145; 84478; 84484; 85014; 85018; 85025; 85520; 85610; 85730; 86850; 86900; 86923; 87040; 87070; 87077; 87081; 87086; 87186; 87205; 93005; 93306; 93880; 94002; 94003; 94640; 95819; 96361; 96365; 96367; A9585; G0378; J0696; J1644; J1940; J2405; J2543; J2704; J3010; J3370; J3480; J7060; J7070; J7620; J0282; J1815; J3475; J3490; J7030; J7040; J7050; P9016